=== PATIENT | male | born 1980 | race African-American/Black ===

== ENCOUNTER 2019-01-07 15:50 | Emergency (ER) | payer OTHER ==
[~2019-01-07] VITALS: Ht 182.9 cm; Wt 83.9 kg
[2019-01-07 16:46] VITALS: BP 123/84
== END 2019-01-07 17:12 ==
LOC: ER 16:02
DX: Z02.89 Encounter for other administrative examinations (principal); Y04.0XXA Assault by unarmed brawl or fight, initial encounter; X58.XXXA Exposure to other specified factors, initial encounter; Y93.89 Activity, other specified; Y92.89 Other specified places as the place of occurrence of the external cause; Y99.8 Other external cause status

== ENCOUNTER 2019-03-14 04:44 | Emergency (ER) | payer OTHER ==
[~2019-03-14] VITALS: Ht 190.5 cm; Wt 88.5 kg
--- NOTE | 2019-03-14 04:59 | NUR ---
called to triage, no response from pt. not in waiting room
[2019-03-14 05:13] VITALS: BP 164/104
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
--- NOTE | 2019-03-14 05:43 | NUR ---
Patient discharged to home in stable condition. Written and verbal after care instructions given. Patient verbalizes understanding of instruction.Pt ambulatory with limp but on steady gait
== END 2019-03-14 05:45 | disposition home or self-care (01) ==
LOC: ER 04:46
DX: L03.116 Cellulitis of left lower limb (principal); M25.562 Pain in left knee; Z59.0 Homelessness

== ENCOUNTER 2019-05-16 01:37 | Inpatient (IN) | payer OTHER ==
[~2019-05-16] VITALS: Ht 190.5 cm; Wt 86.7 kg
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
[2019-05-16 02:18] LABS: BASOPHILS # (AUTO) 0.1 /CMM (0.0-0.2); BASOPHILS % (AUTO) 0.8 % (0.0-2.0); EOSINOPHILS % (AUTO) 4.4 % (0.0-6.0); HEMATOCRIT 44 % (39-51); HEMOGLOBIN 15.1 g/dL (13.5-17.5); LYMPHOCYTES # (AUTO) 1.9 /CMM (0.8-4.8); LYMPHOCYTES % (AUTO) 26.6 % (20.0-44.0); MEAN CORPUSCULAR HGB CONC 34 g/dl (31.0-36.0); MEAN CORPUSCULAR VOLUME 90 fL (80-96); MONOCYTES # (AUTO) 0.5 /CMM (0.1-1.30); MONOCYTES % (AUTO) 7.7 % (2.0-12.0); NEUTROPHILS # (AUTO) 4.3 /CMM (1.8-8.9); NEUTROPHILS % (AUTO) 60.5 % (43.0-81.0); PLATELET COUNT (AUTO) 509 /CMM (150-450); RED BLOOD CELL COUNT(AUTO) 4.91 MIL/uL (4.5-6.0); WHITE BLOOD COUNT (AUTO) 7.1 K/uL (4.3-11.0)
[2019-05-16 02:19] LABS: CREATININE 1.2 mg/dL (0.6-1.3); POTASSIUM 4.1 mmol/L (3.5-5.1)
[2019-05-16] MEDS ORDERED: Z GUARD REMEDY 2 OZ OINT TP PRN (03:00)
[2019-05-16] MEDS ORDERED: MAG HYDROX/AL HYDROX/SIMETH 30 ML UDC PO PRN (03:00)
[2019-05-16] MEDS ORDERED: MAGNESIUM HYDROXIDE 30 ML UDC PO PRN (03:00)
[2019-05-16] MEDS ORDERED: ACETAMINOPHEN 325 MG TABLET PO PRN (03:00)
[2019-05-16] MEDS ORDERED: VANCOMYCIN 1 GM in IV D5W 250 ML IV SCH (03:00)
[2019-05-16] MEDS ORDERED: ONDANSETRON HCL/PF 4 MG/2 ML VIAL IVP PRN (03:00)
[2019-05-16] MEDS ORDERED: HYDROCODONE/APAP 5/325MG 1 EACH TABLET PO PRN (03:00)
[2019-05-16] MEDS ORDERED: ZOLPIDEM TARTRATE 5 MG TABLET PO PRN (03:00)
[2019-05-16] MEDS ORDERED: VANCOMYCIN 500 MG VIAL ONE (03:25)
[2019-05-16] MEDS ORDERED: VANCOMYCIN 1 GM VIAL ONE (03:25)
[2019-05-16] MEDS ORDERED: VANCOMYCIN 1.5 GM in IV D5W 500 ML IV ONE (03:30)
[2019-05-16] MEDS ORDERED: KETOROLAC TROMETHAMINE 15 MG/ML VIAL ONE (03:35)
--- NOTE | 2019-05-16 03:40 | NUR ---
PT STARTED C/O OF PAIN ON THE R HUMPHREY WOUND. RATED 9/10. MD MADE AWARE. RECEIVED VERBAL ORDER OF TORADOL 15MG IV X DOSE. NOTED AND CARRIED OUT
--- NOTE | 2019-05-16 03:46 | NUR ---
TORADOL 15MG ORDER DOUBLE. CANCELLED ONE.
[2019-05-16] MEDS ORDERED: KETOROLAC TROMETHAMINE INJ 30 MG/ML VIAL IV ONE ×2 (04:00)
--- NOTE | 2019-05-16 05:15 | NUR ---
REPORT GIVEN TO HEAVENLY HURD FOR ARLETH.
--- NOTE | 2019-05-16 05:25 | NUR ---
PT TRANSPORTED TO UNIT ON [facility] WITH EMT AND RN AT BEDSIDE. PT IS STABLE FOR TRANSPORT W/O NOTING ANY DISTRESS. PT AMBULATED FROM GURNEY TO BED W/O ANY ASSIST
--- NOTE | 2019-05-16 05:30 | NUR ---
MS MEETING MANAGER NOTES RECEIVED REPORT FROM HEAVENLY PRIEST, IN THE ER. PATIENT TRANSFERRED TO UNIT VIA GURNEY. PATIENT A/O X4. ON ROOM AIR. ABLE TO AMBULATE WITHOUT ASSISTANCE. IV PRESENT ON RIGHT FOREARM, SIZE 18, INTACT & PATENT, HEP LOCKED. NO S/S OF ACUTE RESPIRATORY DISTRESS AND NO COMPLAINTS OF PAIN AT THIS TIME. OPEN WOUND PRESENT ON RIGHT HUMPHREY. PICTURES TAKEN AND PLACED IN CHART. PATIENT REFUSED REVIEW OF BELONGINGS INSIDE BACKPACK, NOTED AND SIGNED IN BELONGINGS LIST AND PLACED IN CHART. NO HOME MEDS REPORTED BY PATIENT. MD MADE AWARE OF NEW ADMISSION AND ORDERS PLACED. BED LOCKED, SEMI-KENNEDY'S POSITION, SIDE RAILS X2, CALL LIGHT WITHIN REACH. WILL CONTINUE TO MONITOR.
[2019-05-16] MEDS ORDERED: PIPERACILLIN /TAZOBACTAM 3.375 G in IV D5W 50 ML IV ONE (06:00)
[2019-05-16 06:10] VITALS: BP 155/95
[2019-05-16] MEDS ORDERED: PIPERACILLIN /TAZOBACTAM 3.375 G VIAL IV ONE (06:27)
[2019-05-16] MEDS: IV NS 0.9% 1,000 ML IV PRN (06:40)
--- NOTE | 2019-05-16 07:30 | NUR ---
RN OPENING NOTES RECEIVED PATIENT IN BED RESTING COMFORTABLY IN MODERATE HIGH BACK REST. A/O X3. NO SIGNS OF DISTRESS NOTED AT THIS TIME. IV ACCESS ON RIGHT FA #18, SL. PATENT AND INTACT. SAFETY MEASURES IN PLACE, BED IN LOW LOCKED POSITION WITH SIDE RAILS UP X2. CALL LIGHT WITHIN EASY REACH. WILL CONTINUE TO MONITOR.
[2019-05-16] MEDS ORDERED: FEE PK DOSING 1 MIN EA MC ONE (07:37)
[2019-05-16 07:40] LABS: BASOPHILS # (AUTO) 0.1 /CMM (0.0-0.2); EOSINOPHILS % (AUTO) 4.4 % (0.0-6.0); HEMATOCRIT 43 % (39-51); HEMOGLOBIN 14.8 g/dL (13.5-17.5); LYMPHOCYTES # (AUTO) 1.5 /CMM (0.8-4.8); LYMPHOCYTES % (AUTO) 27.3 % (20.0-44.0); MEAN CORPUSCULAR HGB CONC 35 g/dl (31.0-36.0); MEAN CORPUSCULAR VOLUME 90 fL (80-96); MONOCYTES # (AUTO) 0.5 /CMM (0.1-1.30); MONOCYTES % (AUTO) 8.2 % (2.0-12.0); NEUTROPHILS # (AUTO) 3.3 /CMM (1.8-8.9); NEUTROPHILS % (AUTO) 59.1 % (43.0-81.0); PLATELET COUNT (AUTO) 482 /CMM (150-450); WHITE BLOOD COUNT (AUTO) 5.7 K/uL (4.3-11.0)
--- NOTE | 2019-05-16 07:46 | NUR ---
MS RN CLOSING NOTES PATIENT RESTING IN BED. A/O X3. ON ROOM AIR. IV PRESENT ON RIGHT FA, SIZE 18, INTACT & PATENT, WITH IVPB ZOSYN RUNNING AT 100 CC/HR. WOUND ON RIGHT HUMPHREY COVERED WITH DRESSING. NO S/S OF ACUTE RESPIRATORY DISTRESS AND NO COMPLAINTS OF PAIN AT THIS TIME. BED LOCKED, LOW-KENNEDY'S POSITION, SIDE RAILS X2, CALL LIGHT WITHIN REACH. WILL ENDORSE TO DAY SHIFT NURSE TO FOLLOW PLAN OF CARE.
[2019-05-16 07:57] LABS: CALCIUM, SERUM 8.9 mg/dL (8.5-10.1); CREATININE 1.1 mg/dL (0.6-1.3); MAGNESIUM 2.1 mg/dL (1.8-2.4); PHOSPHORUS 3.6 mg/dL (2.5-4.9); POTASSIUM 4.1 mmol/L (3.5-5.1)
[2019-05-16 08:00] VITALS: BP 155/99
[2019-05-16] MEDS: PIPERACILLIN /TAZOBACTAM 3.375 G in IV D5W 100 ML IV SCH ×2 (09:54→17:12)
[2019-05-16] MEDS: INFLUENZA VACCINE 2019-20 0.5 ML DISP.SYRIN IM ONE ×2 (09:59→10:19)
[2019-05-16] MEDS: VANCOMYCIN 1.25 GM in IV D5W 250 ML IV SCH ×2 (11:16→20:07)
[2019-05-16] MEDS ORDERED: PIPERACILLIN /TAZOBACTAM 3.375 G in IV D5W 50 ML IV SCH (12:00)
[2019-05-16 16:00] VITALS: BP 146/81
--- NOTE | 2019-05-16 18:43 | NUR ---
RN CLOSING NOTES PATIENT IN BED RESTING COMFORTABLY IN MODERATE HIGH BACK REST. A/O X3. NO SIGNS OF DISTRESS NOTED THROUGHOUT THE SHIFT. IV ACCESS ON RIGHT FA #18, SL AND LEFT FA#20 WITH NS @75ML/HR. PATENT AND INTACT. SAFETY MEASURES IN PLACE, BED IN LOW LOCKED POSITION WITH SIDE RAILS UP X2. CALL LIGHT WITHIN EASY REACH. WILL ENDORSE TO RESEARCH GREENHOUSE SUPERVISOR NURSE FOR ARLETH.
--- NOTE | 2019-05-16 19:30 | NUR ---
MS RN OPENING NOTES PATIENT ASLEEP UPON ARRIVAL, ABLE TO WAKE UP THROUGH VERBAL RESPONSES BUT IS STILL VERY LETHARGIC. A/O X 3. ON ROOM AIR. NO S/S OF ACUTE RESPIRATORY DISTRESS AND NO COMPLAINTS OF PAIN AT THIS TIME. IV ON RIGHT FOREARM, SIZE 18, INTACT & PATENT. IV ON LEFT FOREARM, SIZE 20, INTACT & PATENT. WOUND ON RIGHT SHIFT COVERED WITH GAUZE. BED LOCKED, ALARM ON, LOW-KENNEDY'S POSITION, SIDE RAILS X2, CALL LIGHT WITHIN REACH. WILL CONTINUE TO MONITOR.
[2019-05-16 20:00] VITALS: BP 158/87
[2019-05-17] MEDS: PIPERACILLIN /TAZOBACTAM 3.375 G in IV D5W 100 ML IV SCH ×3 (02:11→16:58)
[2019-05-17] MEDS: IV NS 0.9% 1,000 ML IV PRN (02:14)
[2019-05-17] MEDS: VANCOMYCIN 1.25 GM in IV D5W 250 ML IV SCH (04:06)
[2019-05-17 07:10] LABS: EOSINOPHILS % (AUTO) 5.1 % (0.0-6.0); HEMATOCRIT 46 % (39-51); HEMOGLOBIN 15.7 g/dL (13.5-17.5); LYMPHOCYTES # (AUTO) 1.3 /CMM (0.8-4.8); LYMPHOCYTES % (AUTO) 28.7 % (20.0-44.0); MEAN CORPUSCULAR HGB CONC 34 g/dl (31.0-36.0); MEAN CORPUSCULAR VOLUME 90 fL (80-96); MONOCYTES # (AUTO) 0.3 /CMM (0.1-1.30); MONOCYTES % (AUTO) 6.7 % (2.0-12.0); NEUTROPHILS # (AUTO) 2.7 /CMM (1.8-8.9); NEUTROPHILS % (AUTO) 58.5 % (43.0-81.0); PLATELET COUNT (AUTO) 471 /CMM (150-450); RED BLOOD CELL COUNT(AUTO) 5.12 MIL/uL (4.5-6.0); WHITE BLOOD COUNT (AUTO) 4.5 K/uL (4.3-11.0)
--- NOTE | 2019-05-17 07:30 | NUR ---
PT RECEIVED RESTING COMFORTABLY IN BED. NO S/S OR C/O PAIN OR DISTRESS NOTED. SIDE RAILS UP X2, CALL LIGHT LEFT WITHIN REACH. WILL CONTINUE PLAN OF CARE
--- NOTE | 2019-05-17 07:38 | NUR ---
MS RN CLOSING NOTES PATIENT SLEEPING IN BED. A/O X 3. ON ROOM AIR. NO S/S OF ACUTE RESPIRATORY DISTRESS AND NO COMPLAINTS OF PAIN AT THIS TIME. IV ON RIGHT FOREARM, SIZE 18, INTACT & PATENT. IV ON LEFT FOREARM, SIZE 20, INTACT & PATENT. BED LOCKED, ALARM ON, LOW-KENNEDY'S POSITION, SIDE RAILS X2, CALL LIGHT WITHIN REACH. WILL ENDORSE TO DAY SHIFT NURSE TO FOLLOW PLAN OF CARE.
[2019-05-17 07:39] LABS: CALCIUM, SERUM 8.9 mg/dL (8.5-10.1); CREATININE 1.1 mg/dL (0.6-1.3); POTASSIUM 4.1 mmol/L (3.5-5.1)
[2019-05-17 08:00] VITALS: BP 149/105
[2019-05-17] MEDS: VANCOMYCIN 1 GM in IV D5W 250ml IV SCH ×2 (12:58→20:27)
[2019-05-17 16:00] VITALS: BP 160/105
--- NOTE | 2019-05-17 18:22 | NUR ---
CHANGE OF SHIFT REPORT PT RESTING COMFORTABLY IN BED. NO S/S OR C/O PAIN OR DISTRESS NOTED. SIDE RAILS UP X2, CALL LIGHT LEFT WITHIN REACH. PT KEPT CLEAN, DRY, AND COMFORTABLE. NO SIGNIFICANT CHANGE SINCE PREVIOUS SHIFT. WILL GIVE REPORT TO CONCEPCIÓN BURDICK.
--- NOTE | 2019-05-17 19:50 | NUR ---
RN NOTES RECEIVED PATIENT ASLEEP IN BED, AROUSABLE, NO SIGNS OF ACUTE DISTRESS NOTED, SAFETY MEASURES IN PLACE, CALL LIGHT WITHIN EASY REACH, BED IN LOW LOCKED POSITION.ALL NEEDS ATTENDED, WILL MONITOR ACCORDINGLY.
[2019-05-17 20:54] VITALS: BP 144/75
[2019-05-17 20:58] VITALS: BP 144/75
[2019-05-18] MEDS: PIPERACILLIN /TAZOBACTAM 3.375 G in IV D5W 100 ML IV SCH (03:01)
[2019-05-18] MEDS: VANCOMYCIN 1 GM in IV D5W 250ml IV SCH (04:00)
--- NOTE | 2019-05-18 06:51 | NUR ---
RN NOTES ALL NEEDS ATTENDED AND MET ABLE TO REST AND SLEPT AT INTERVALS, SAFETY MEASURES IN PLACE, CALL LIGHT WITHIN EASY REACH. WILL ENDORSE TO AM NURSE FOR CONTINUITY OF CARE.
[2019-05-18 07:29] LABS: BASOPHILS # (AUTO) 0.1 /CMM (0.0-0.2); BASOPHILS % (AUTO) 1.1 % (0.0-2.0); EOSINOPHILS % (AUTO) 4.7 % (0.0-6.0); HEMATOCRIT 46 % (39-51); HEMOGLOBIN 15.8 g/dL (13.5-17.5); LYMPHOCYTES # (AUTO) 1.5 /CMM (0.8-4.8); LYMPHOCYTES % (AUTO) 27.6 % (20.0-44.0); MEAN CORPUSCULAR HGB CONC 34 g/dl (31.0-36.0); MEAN CORPUSCULAR VOLUME 90 fL (80-96); MONOCYTES # (AUTO) 0.4 /CMM (0.1-1.30); MONOCYTES % (AUTO) 7.2 % (2.0-12.0); NEUTROPHILS # (AUTO) 3.3 /CMM (1.8-8.9); NEUTROPHILS % (AUTO) 59.4 % (43.0-81.0); PLATELET COUNT (AUTO) 440 /CMM (150-450); RED BLOOD CELL COUNT(AUTO) 5.12 MIL/uL (4.5-6.0); WHITE BLOOD COUNT (AUTO) 5.6 K/uL (4.3-11.0)
[2019-05-18 07:40] LABS: CREATININE 1.4 mg/dL (0.6-1.3); PHOSPHORUS 4.2 mg/dL (2.5-4.9); POTASSIUM 4.3 mmol/L (3.5-5.1)
--- NOTE | 2019-05-18 07:43 | NUR ---
MS/RN OPENING NOTES RECEIVED PATIENT RESTING COMFORTABLY IN BED. NO S/S OR C/O PAIN OR DISTRESS NOTED. SIDE RAILS UP X2, CALL LIGHT IS WITHIN REACH. PT KEPT CLEAN, DRY, AND COMFORTABLE. NO SIGNIFICANT CHANGE SINCE PREVIOUS SHIFT. WILL CONTINUE TO MONITOR.
[2019-05-18 08:00] VITALS: BP 167/81
[2019-05-18] MEDS ORDERED: CEPH-570 PO (08:39)
--- NOTE | 2019-05-18 09:40 | NUR ---
MS/RN NOTES PATIENT REFUSED TO TAKE WOUND PICTURE BEFORE DISCHARGED. "WANT TO LEAVE NOW" PER PATIENT.
--- NOTE | 2019-05-18 09:45 | NUR ---
MS/RN NOTES EXPLAINED PATIENT WAIVER FORM, PATIENT REFUSED TO SIGN.
--- NOTE | 2019-05-18 10:20 | NUR ---
MS/RN NOTES PATIENT LEFT THE UNIT WITH STABLE CONDITION, DENIES PAIN, ALERT AND ORIENTED, IN ROOM AIR AND SATURATION AT 98%. RESPIRATION REGULAR AND UNLABORED. PATIENT IN NO APPARENT DISTRESS. PATIENT VERBALIZED WANTED TO LEAVE. EXPLAINED THE RISK AND BENEFIT FOR STAYING IN THE STREET. REFUSED ANY HELP. REFUSED TO SIGN THE D/C FORM "CANNOT WAIT" PER PATIENT.
--- NOTE | 2019-05-18 10:25 | NUR ---
WOUND CARE CONSULT: UNABLE TO SEE PT SINCE PT ALREADY LEFT HOSPITAL.
--- NOTE | 2019-05-18 10:26 | NUR ---
Social service consult requested by Dr. Chand for homelessness. RN BONE MARROW TRANSPLANT was unable to see the pt. since pt. left in a hurry and without his prescriptions.
== END 2019-05-18 10:15 | disposition home or self-care (01) | DRG 383 ==
LOC: ER 01:41 → MED 04:40
PROVIDERS: ADMIT Student in an Organized Health Care Education/Training Program; ATTEND Student in an Organized Health Care Education/Training Program
DX: L03.116 Cellulitis of left lower limb (principal); D47.3 Essential (hemorrhagic) thrombocythemia; Z59.0 Homelessness; V29.9XXD Motorcycle rider (driver) (passenger) injured in unspecified traffic accident, subsequent encounter
CPT/HCPCS: 36415; 73590-TC; 80048-TC; 80061-TC; 80202-TC; 83735-TC; 84100-TC; 85025-TC; 87040-TC; 87070-TC; 87081-TC; 87186-TC; 97116-TC; 97530-TC; A6403; G0378; J1885; J2543; J3370; J7030; J7040; J7050; J7060; Q2036

== ENCOUNTER 2019-07-19 08:41 | Inpatient (IN) | payer OTHER ==
[~2019-07-19] VITALS: Ht 190.5 cm; Wt 86.2 kg
[~2019-07-19 08:41] MED LIST: CEPH-570 PO
[2019-07-19] MEDS ORDERED: PIPERACILLIN /TAZOBACTAM 3.375 G in IV D5W 50 ML IV ONE (09:30)
[2019-07-19] MEDS ORDERED: MORPHINE SULFATE INJ 2 MG/ML DISP.SYRIN IV ONE (09:30)
[2019-07-19] MEDS ORDERED: ONDANSETRON HCL/PF 4 MG/2 ML VIAL IVP ONE (09:30)
[2019-07-19] MEDS ORDERED: IV NS 0.9% 1,000 ML BAG IV ONE (09:30)
[2019-07-19 09:54] LABS: BASOPHILS % (AUTO) 0.5 % (0.0-2.0); EOSINOPHILS % (AUTO) 1.8 % (0.0-6.0); HEMATOCRIT 40 % (39-51); HEMOGLOBIN 13.4 g/dL (13.5-17.5); LYMPHOCYTES % (AUTO) 10.9 % (20.0-44.0); MEAN CORPUSCULAR HGB CONC 34 g/dl (31.0-36.0); MEAN CORPUSCULAR VOLUME 89 fL (80-96); MONOCYTES # (AUTO) 0.9 /CMM (0.1-1.30); MONOCYTES % (AUTO) 9.3 % (2.0-12.0); NEUTROPHILS # (AUTO) 7.3 /CMM (1.8-8.9); NEUTROPHILS % (AUTO) 77.5 % (43.0-81.0); PLATELET COUNT (AUTO) 371 /CMM (150-450); RED BLOOD CELL COUNT(AUTO) 4.43 MIL/uL (4.5-6.0); WHITE BLOOD COUNT (AUTO) 9.4 K/uL (4.3-11.0)
[2019-07-19] MEDS ORDERED: MORPHINE SULFATE INJ 4 MG/ML DISP.SYRIN ONE (10:00)
[2019-07-19] MEDS ORDERED: ONDANSETRON HCL/PF 4 MG/2 ML VIAL ONE (10:00)
[2019-07-19 10:05] LABS: CALCIUM, SERUM 9.1 mg/dL (8.5-10.1); CREATININE 1.1 mg/dL (0.6-1.3); POTASSIUM 4.1 mmol/L (3.5-5.1)
[2019-07-19] MEDS ORDERED: PIPERACILLIN /TAZOBACTAM 3.375 G VIAL IV ONE (10:13)
--- NOTE | 2019-07-19 10:27 | NUR ---
Patient awake alert friend @ bedside ,noted edam to RT leg an foot /ankle ,he has Rt wound lesion blood draw done awaiting for result ,noted RT AC IV infusing well
--- NOTE | 2019-07-19 10:34 | NUR ---
PANEL ON-CALL PAGED
--- NOTE | 2019-07-19 12:14 | NUR ---
MS/RN NOTE THE PATIENT IS RECEIVED ON A GURNEY. ASSISTED THE PATIENT TO BED. PATIENT IS ALERT AND ORIENTED X4. IN ROOM AIR AND DENIES SOB. RESPIRATION REGULAR AND UNLABORED. COMPLAINS OF RIGHT LOWER LEG PAIN. DR BANDA IS AWARE. WILL ADMINISTER PAIN MEDICATION SOON THE MD PLACES AN ORDER. LAC G 20 PATENT AND SALINE LOCKED. PATIENT IS GIVEN ORIENTATION TO THE ROOM AND UNIT AND HE VERBALIZED UNDERSTANDING. BED LOW AND LOCKED. SIDE RAILS UP X3. CALL LIGHT WITHIN REACH. WILL CONTINUE TO MONITOR.
[2019-07-19] MEDS ORDERED: Z GUARD REMEDY 2 OZ OINT TP PRN (12:30)
[2019-07-19] MEDS ORDERED: ONDANSETRON HCL/PF 4 MG/2 ML VIAL IVP PRN (12:30)
[2019-07-19] MEDS ORDERED: MAG HYDROX/AL HYDROX/SIMETH 30 ML UDC PO PRN (12:30)
[2019-07-19] MEDS ORDERED: ZOLPIDEM TARTRATE 5 MG TABLET PO PRN (12:30)
[2019-07-19] MEDS ORDERED: MAGNESIUM HYDROXIDE 30 ML UDC PO PRN (12:30)
[2019-07-19] MEDS ORDERED: CLINDAMYCIN IV RTU IN D5W 900 MG/50 ML PIGGYBACK IV SCH (13:00)
[2019-07-19] MEDS: CLINDAMYCIN 900 MG in IV D5W 50 ML IV SCH ×2 (13:36→20:04)
[2019-07-19] MEDS: HYDROCODONE/APAP 5/325MG 1 EACH TABLET PO PRN ×2 (14:45→18:57)
[2019-07-19 17:24] VITALS: BP 155/94
[2019-07-19] MEDS: ACETAMINOPHEN 325 MG TABLET PO PRN ×2 (17:24→23:27)
--- NOTE | 2019-07-19 17:24 | NUR ---
MS/RN NOTE THE PATIENT IS NOTED TO HAVE TEMP OF 101.5. TYLENOL 650 MG PO IS GIVEN. WILL CONTINUE TO MONITOR.
[2019-07-19 18:00] VITALS: BP 151/97
--- NOTE | 2019-07-19 18:00 | NUR ---
MS/RN NOTE NOTED ELEVATION IN TEMP TO 101.7 DESPITE ADMINISTRATION OF TYLENOL 650MG PO AT 1724. COOLING MEASURES PROVIDED TOO. WILL MONITOR.
[2019-07-19 18:30] VITALS: BP 152/95
--- NOTE | 2019-07-19 18:58 | NUR ---
MS/RN NOTE THE PATIENT IS ALERT AND ORIENTED X4. IN ROOM AIR AND SATURATION IS AT 99%. DENIES SOB. RESPIRATION REGULAR AND UNLABORED. PATIENT COMPLAINS OF RIGHT LOWER LEG PAIN 01/13. NORCO 5/325 1 TAB PO GIVEN. WILL ENDORSE TO REPAIRER SASH AND DOOR TO MONITOR THE EFFECTIVENESS OF PAIN MEDICATION. THE MOST RECENT TEMP IS 99.2. COOLING MEASURES STILL PROVIDED AND WILL ENDORSE TO REPAIRER SASH AND DOOR TO CONTINUE MONITOR TEMP CLOSELY. THE PATIENT REMOVED LAC G 20 IV AND REFUSES IV INSERTION AT THIS TIME. HE AGREED IV INSERTION LATER TONIGHT. DR BANDA IS AWARE. RIGHT LOWER LEG IS ELEVATED ON A PILLOW. BED LOW AND LOCKED. SIDE RAILS UP X3. CALL LIGHT WITHIN REACH. WILL ENDORSE TO REPAIRER SASH AND DOOR.
[2019-07-19 19:00] VITALS: BP 149/94
[2019-07-19 20:00] VITALS: BP_SYST 144; BP_SYST 149; BP_DIAS 69
--- NOTE | 2019-07-19 20:42 | NUR ---
RN NOTES RECEIVED PATIENT IN BED, ALERT AND ORIENTED X4, ROOM AIR, CALM, MUMBLES TO SELF, LAT TEMP 98.1F, HAD EPISODE OF FEVER, RIGHT LEG CELLULITIS, COVERED WITH ABDOMINAL PAD,PT REFUSED KERLIX AROUND LEG, REINSERTED IV LINE TO RIGHT WRIST, CLEOCIN IV GIVEN, SIGNIFICANT OTHER AT THE BEDSIDE. PT HAS HX OF METHAMPHETAMINE USE, DENIES IV DRUG USE.
--- NOTE | 2019-07-19 21:45 | NUR ---
RN NOTES PERSISTENT FEVER, LAST TEMP 103.5F, COOLING MEASURES MAINTAINED, AWAITING BLOOD CULTURE RESULTS, ON CLEOCIN IV, TYLENOL WAS GIVEN, NOTIFIED DR. RAI, NO NEW ORDER.
[2019-07-20] MEDS: CLINDAMYCIN 900 MG in IV D5W 50 ML IV SCH ×2 (04:30→12:39)
--- NOTE | 2019-07-20 06:32 | NUR ---
RN NOTES PM SHIFT ALERT AND ORIENTED X4, STABLE ON ROOM AIR, COMPLAINING OF PAIN TO RIGHT LEG DUE TO CELLULITIS, TEMPERATURE ELEVATED DURING SHIFT, COOLING MEASURES, TYLENOL GIVEN, LAST TEMP AT 0630 98.1F, ON CLEOCIN IVPB, PENDING BLOOD CULTURE RESULTS, WOUND CARE CONSULT
[2019-07-20 07:47] LABS: BASOPHILS % (AUTO) 0.3 % (0.0-2.0); EOSINOPHILS % (AUTO) 0.5 % (0.0-6.0); HEMATOCRIT 39 % (39-51); LYMPHOCYTES # (AUTO) 1.4 /CMM (0.8-4.8); LYMPHOCYTES % (AUTO) 8.9 % (20.0-44.0); MEAN CORPUSCULAR HGB CONC 34 g/dl (31.0-36.0); MEAN CORPUSCULAR VOLUME 90 fL (80-96); MONOCYTES # (AUTO) 1.9 /CMM (0.1-1.30); MONOCYTES % (AUTO) 12.3 % (2.0-12.0); NEUTROPHILS # (AUTO) 12.2 /CMM (1.8-8.9); PLATELET COUNT (AUTO) 360 /CMM (150-450); RED BLOOD CELL COUNT(AUTO) 4.31 MIL/uL (4.5-6.0); WHITE BLOOD COUNT (AUTO) 15.7 K/uL (4.3-11.0)
--- NOTE | 2019-07-20 07:49 | NUR ---
MS RN OPENING NOTES RECEIVED PATIENT IN BED, ASLEEP. PATIENT BREATHING ON ROOM AIR WITH NO SIGN OF ACUTE DISTRESS OR SOB PRESENT. NO SIGNS OF PAIN NOTED SUCH MOANING, FACIAL GRIMACING OR GUARDING. R WRIST HL # 20 PRESENT AND INTACT, FLUSHING WELL. SAFETY PRECAUTIONS IN PLACE; BED IN LOW POSITION AND LOCKED, RAILS UP X 2, CALL LIGHT WITHIN REACH. WILL CONTINUE TO MONITOR PATIENT.
[2019-07-20 08:00] VITALS: BP 125/73
[2019-07-20 08:08] LABS: CALCIUM, SERUM 8.5 mg/dL (8.5-10.1); MAGNESIUM 1.9 mg/dL (1.8-2.4); PHOSPHORUS 2.9 mg/dL (2.5-4.9); POTASSIUM 4.1 mmol/L (3.5-5.1)
--- NOTE | 2019-07-20 10:48 | NUR ---
WOUND CARE CONSULT: LIMITED ASSESSMENT TODAY DUE TO PT NOT FULLY COOPERATIVE. PT MOANING AND LYING ON HIS SIDE. RECOMMEND DPM CONSULT FOR LOWER LEG WOUNDS. PURULENT DRAINAGE AND ODOR NOTED WELL VERY RED SWOLLEN RT LOWER LEG, PRESENT ON ADMISSION. DR TITUS NOTIFIED OF CONSULT REQUEST. WILL SEE PRN. ALFARO IN AGREEMENT WITH PLAN OF CARE. CURRENT MINERVA SCORE IS 17. Addendum: 07/20/19 at 1050 by TONYA MEHTA WNDNU Amended: Links added.
[2019-07-20] MEDS: ACETAMINOPHEN 325 MG TABLET PO PRN ×2 (11:50→20:35)
--- NOTE | 2019-07-20 11:54 | NUR ---
MS RN NOTES PATIENT SHIVERING AND COLD. CHECKED HIS FEVER. FEVER OF 101.2. PRN TYLENOL FOR FEVER ADMINISTERED. WILL REASSESS SOON.
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
[2019-07-20 16:00] VITALS: BP 141/74
[2019-07-20] MEDS ORDERED: IV NS 0.9% 1,000 ML BAG IV PRN (16:30)
[2019-07-20] MEDS ORDERED: FEE PK DOSING 1 MIN EA MC ONE (16:41)
[2019-07-20] MEDS ORDERED: PIPERACILLIN /TAZOBACTAM 3.375 G in IV D5W 100 ML IV SCH (17:00)
[2019-07-20] MEDS ORDERED: PIPERACILLIN /TAZOBACTAM 3.375 G in IV D5W 50 ML IV SCH (18:00)
[2019-07-20] MEDS ORDERED: VANCOMYCIN 1.25 GM in IV D5W 250 ML IV ONE (18:00)
[2019-07-20] MEDS: PIPERACILLIN /TAZOBACTAM 3.375 G in IV D5W 50 ML IV SCH ×2 (18:04→23:40)
--- NOTE | 2019-07-20 19:21 | NUR ---
MS RN CLOSING NOTES PATIENT IN BED, IN AND OUT OF SLEEP. PATIENT BREATHING ON ROOM AIR WITH NO SIGN OF ACUTE DISTRESS OR SOB PRESENT. MILD PAIN PER PATIENT BUT NO MEDICATION REQUESTED. DURING THE DAY TEMP WENT UP AND PATIENT WAS GIVEN PRN TYLENOL. R WRIST HL # 20 PRESENT AND INTACT INFUSING MEDICATION AT THIS TIME. WOUND CARE DONE TODAY. SAFETY PRECAUTIONS IN PLACE; BED IN LOW POSITION AND LOCKED, RAILS UP X 2, CALL LIGHT WITHIN REACH. WILL ENDORSE TO FOREIGN LANGUAGE INTERPRETER NURSE.
--- NOTE | 2019-07-20 19:28 | NUR ---
MS RN NOTES PATIENT IN BED RESTING, LAYING COMFORTABLY. PATIENT AWAKEN BY NAME AND LIGHT TOUCH. PATIENT ON ROOM AIR, WITH NO SIGNS OF RESPIRATORY DISTRESS, NO SIGNS OF SOB, WITH EVEN NON-LABORED BREATHING. PATIENT IV ACCESS INTACT AND PATENT. PROVIDED COMFORT MEASURES TO PATIENT. SAFETY PRECAUTIONS IN PLACE WITH THE BED IN THE LOWEST POSITION, BILATERAL SIDE RAILS UP, BED LOCKED, BED ALARM ON, AND CALL LIGHT WITHIN EASY REACH OF THE PATIENT. WILL CONTINUE TO MONITOR PATIENT.
[2019-07-20 20:32] VITALS: BP 137/83
--- NOTE | 2019-07-20 20:38 | NUR ---
MS RN NOTES PATIENT TEMPERATURE 101.3 F. PROVIDED ICE PACK TO THE PATIENT AND MADE THE ROOM COOLER. ADMINISTERED ACETAMINOPHEN PO. WILL CONTINUE TO MONITOR PATIENT.
[2019-07-20 21:55] VITALS: BP 137/83
[2019-07-21] MEDS: VANCOMYCIN 1 GM in IV D5W 250 ML IV SCH ×3 (01:16→19:47)
[2019-07-21] MEDS: PIPERACILLIN /TAZOBACTAM 3.375 G in IV D5W 50 ML IV SCH ×4 (05:02→23:17)
--- NOTE | 2019-07-21 06:51 | NUR ---
MS RN NOTES PATIENT IN BED SLEEPING, ACCOMPANIED BY SIGNIFICANT OTHER AT BEDSIDE. ALERT AND ORIENTED X4. PATIENT ON ROOM AIR DENIES SOB, NO RESPIRATORY DISTRESS PRESENT AND WITH EVEN NON-LABORED BREATHING. IV ACCESS IN PLACE, INTACT, AND PATENT, RUNNING NS AT 100ml/hr. PATIENT SKIN KEPT CLEAN AND DRY. DRESSING ON RIGHT LOWER EXTREMITY KEPT CLEAN AND INTACT. PATIENT INITIAL TEMPERATURE 101.3 F, COOLING MEASURES APPLIED, PRN TYLENOL MEDICATION ADMINISTERED, AND CURRENT TEMPERATURE 98.5F. SAFETY PRECAUTIONS IN PLACE WITH BED IN THE LOWEST POSITION, BILATERAL SIDE RAILS UP, BED LOCKED, AND CALL LIGHT WITHIN EASY REACH OF THE PATIENT. WILL ENDORSE ARLETH TO UPCOMING DAYSHIFT NURSE.
[2019-07-21 08:00] VITALS: BP 128/76
--- NOTE | 2019-07-21 08:00 | NUR ---
m/s disk operator: initial assessment received pt in bed sounds asleep with girlfriend at bedside. no s/s of distress noted. no distress noted. will continue to monitor.
[2019-07-21] MEDS: ACETAMINOPHEN 325 MG TABLET PO PRN ×2 (09:13→20:28)
[2019-07-21 09:22] LABS: CALCIUM, SERUM 8.6 mg/dL (8.5-10.1); CREATININE 1.3 mg/dL (0.6-1.3); POTASSIUM 4.4 mmol/L (3.5-5.1)
[2019-07-21 09:54] LABS: BASOPHILS % (AUTO) 0.2 % (0.0-2.0); EOSINOPHILS % (AUTO) 0.6 % (0.0-6.0); HEMATOCRIT 39 % (39-51); HEMOGLOBIN 12.7 g/dL (13.5-17.5); LYMPHOCYTES # (AUTO) 1.5 /CMM (0.8-4.8); LYMPHOCYTES % (AUTO) 7.4 % (20.0-44.0); MEAN CORPUSCULAR HGB CONC 33 g/dl (31.0-36.0); MEAN CORPUSCULAR VOLUME 90 fL (80-96); MONOCYTES # (AUTO) 1.6 /CMM (0.1-1.30); NEUTROPHILS # (AUTO) 16.5 /CMM (1.8-8.9); NEUTROPHILS % (AUTO) 83.8 % (43.0-81.0); PLATELET COUNT (AUTO) 471 /CMM (150-450); WHITE BLOOD COUNT (AUTO) 19.7 K/uL (4.3-11.0)
--- NOTE | 2019-07-21 11:00 | NUR ---
m/s environmental health sanitarian: notes venous duplex to right lower ext done which is negative.
--- NOTE | 2019-07-21 12:00 | NUR ---
m/s talcer: dpm f/u seen and examined by dr. arreola and tx done to right lower leg wound. per md, the right medial malleolus and left lower leg is just scab. pt tolerated wound tx. will continue to monitor.
[2019-07-21] MEDS: SILVER SULFADIAZINE 50 GM JAR TP SCH (12:11)
--- NOTE | 2019-07-21 14:00 | NUR ---
m/s fur grader: notes mri checklist done and signed by pt and verbalized understanding.
--- NOTE | 2019-07-21 14:15 | NUR ---
m/s electrical accessories ii assembler: notes pt taken to mri via w/c at this time.
--- NOTE | 2019-07-21 15:10 | NUR ---
m/s pipeline technician: notes pt returned from mri, but unable to complete test due to coil problem per tech. will do the mri tomorrow as stated. mri checklist consent with tech.
[2019-07-21 16:00] VITALS: BP 123/73
--- NOTE | 2019-07-21 17:30 | NUR ---
m/s billing collections specialist: notes vanco trough drawn at this time.
--- NOTE | 2019-07-21 19:00 | NUR ---
m/s marine diver: notes vanco trough still pending. endorse to noc nurse and report given for continuity of care. pharmacist called and informed not to give the vancomycin until trough is resulted.
--- NOTE | 2019-07-21 19:22 | NUR ---
MS RN NOTES PATIENT RECEIVED IN BED SLEEPING, EASILY AWAKEN BY NAME, ALERT AND ORIENTED X4. ON ROOM AIR WITH NO SIGNS OF RESPIRATORY DISTRESS PRESENT, WITH EVEN NON-LABORED BREATHING. PATIENT IV ACCESS INTACT AND PATENT. AWAITING FOR VANCOMYCIN TROUGH REPORTED BY DAYSHIFT NURSE. PATIENT COMPLAINS OF NO PAIN AND DISCOMFORT AT THIS TIME. PROVIDED COMFORT MEASURES TO PATIENT. SAFETY PRECAUTIONS IMPLEMENTED WITH BED IN THE LOWEST POSITION, BILATERAL SIDE RAILS UP, BED LOCKED, AND CALL LIGHT WITHIN EASY REACH OF PATIENT. WILL CONTINUE TO MONITOR PATIENT.
--- NOTE | 2019-07-21 19:50 | NUR ---
MS RN NOTES VANCOMYCIN TROUGH REPORTED FROM LAB RESULT OF 11. VANCOMYCIN ADMINISTERED AT 1947. WILL CONTINUE TO MONITOR PATIENT.
[2019-07-21 20:00] VITALS: BP 160/80
--- NOTE | 2019-07-21 20:31 | NUR ---
MS RN NOTES PATIENT'S TEMPERATURE IS 100.4, REFUSED COOLING MEASURES. ADMINISTERED PRN ACETAMINOPHEN 650mg at 2027, WILL CONTINUE TO MONITOR AND REASSESS PATIENT'S TEMPERATURE.
[2019-07-22] VITALS: BP 112/73
[2019-07-22] MEDS: VANCOMYCIN 1 GM in IV D5W 250 ML IV SCH ×3 (01:18→19:15)
[2019-07-22] MEDS: PIPERACILLIN /TAZOBACTAM 3.375 G in IV D5W 50 ML IV SCH ×4 (05:08→23:54)
--- NOTE | 2019-07-22 07:25 | NUR ---
MS RN NOTES PATIENT IN BED SLEEPING, EASILY AWAKEN BY NAME AND LIGHT TOUCH. ALERT AND ORIENTED X 4. PATIENT ON ROOM AIR WITH EVEN NON-LABORED BREATHING, NO COMPLAINS OF SOB. PATIENT IV ACCESS INTACT AND PATENT. PATIENT INITIAL TEMPERATURE WAS 100.4, CURRENT TEMPERATURE 98.9F. PROVIDED COMFORT MEASURES AND MET ALL OF PATIENT'S NEEDS. SAFETY PRECAUTIONS IMPLEMENTED WITH BED IN THE LOWEST POSITION, BILATERAL SIDE RAILS UP, BED ALARM ON, BED LOCKED AND CALL LIGHT WITHIN EASY REACH OF THE PATIENT. WILL ENDORSE PLAN OF CARE TO UPCOMING DAYSHIFT NURSE.
[2019-07-22 08:00] VITALS: BP 115/62
[2019-07-22] MEDS ORDERED: IV NS 0.9% 1,000 ML IV PRN (09:30)
[2019-07-22] MEDS: SILVER SULFADIAZINE 50 GM JAR TP SCH (10:45)
--- NOTE | 2019-07-22 11:50 | NUR ---
VERY ANXIOUS AT THIS TIME AND WANTS TO LEAVE.RN ADVISED AGAINST THIS.INFORMED OF NEED FOR IV ANTIBIOTICS.PT. GRADUALLY BECAME AGREEABLE.
[2019-07-22 14:42] LABS: BASOPHILS % (AUTO) 0.3 % (0.0-2.0); EOSINOPHILS % (AUTO) 1.6 % (0.0-6.0); HEMATOCRIT 40 % (39-51); HEMOGLOBIN 13.5 g/dL (13.5-17.5); LYMPHOCYTES # (AUTO) 1.2 /CMM (0.8-4.8); LYMPHOCYTES % (AUTO) 6.7 % (20.0-44.0); MEAN CORPUSCULAR HGB CONC 34 g/dl (31.0-36.0); MEAN CORPUSCULAR VOLUME 90 fL (80-96); MONOCYTES # (AUTO) 1.1 /CMM (0.1-1.30); MONOCYTES % (AUTO) 6.3 % (2.0-12.0); NEUTROPHILS % (AUTO) 85.1 % (43.0-81.0); PLATELET COUNT (AUTO) 626 /CMM (150-450); RED BLOOD CELL COUNT(AUTO) 4.45 MIL/uL (4.5-6.0); WHITE BLOOD COUNT (AUTO) 17.6 K/uL (4.3-11.0)
[2019-07-22 14:59] LABS: CREATININE 1.2 mg/dL (0.6-1.3); MAGNESIUM 2.5 mg/dL (1.8-2.4); PHOSPHORUS 3.8 mg/dL (2.5-4.9); POTASSIUM 4.2 mmol/L (3.5-5.1)
[2019-07-22 16:00] VITALS: BP 118/70
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
--- NOTE | 2019-07-22 19:35 | NUR ---
MS RN OPENING NOTS PATIENT RECEIVED RESTING IN BED A/O X 4. STABLE ON RA WITH BREATHING EVEN AND UNLABORED, NO SOB NOTED. NO SIGNS OF ACUTE DISTRESS. NO COMPLAINTS OF PAIN OR DISCOMFORT. IV LOCATED ON RFA #22 RUNNING NS @ 100 ML/HR SAFETY PRECAUTIONS IN PLACE WITH BED IN LOWEST POSITION, CALL LIGHT WITHIN REACH, BED LOCKED, AND SIDE RAILS UP. WILL CONTINUE TO MONITOR THROUGHOUT THE NIGHT.
[2019-07-22 20:00] VITALS: BP 140/89
[2019-07-23] MEDS: VANCOMYCIN 1 GM in IV D5W 250 ML IV SCH ×2 (01:31→10:13)
[2019-07-23] MEDS: PIPERACILLIN /TAZOBACTAM 3.375 G in IV D5W 50 ML IV SCH ×2 (05:13→14:24)
[2019-07-23 06:29] LABS: BASOPHILS # (AUTO) 0.1 /CMM (0.0-0.2); BASOPHILS % (AUTO) 0.5 % (0.0-2.0); EOSINOPHILS % (AUTO) 2.1 % (0.0-6.0); HEMATOCRIT 37 % (39-51); HEMOGLOBIN 12.5 g/dL (13.5-17.5); LYMPHOCYTES # (AUTO) 1.7 /CMM (0.8-4.8); LYMPHOCYTES % (AUTO) 11.7 % (20.0-44.0); MEAN CORPUSCULAR HGB CONC 34 g/dl (31.0-36.0); MEAN CORPUSCULAR VOLUME 89 fL (80-96); MONOCYTES # (AUTO) 1.1 /CMM (0.1-1.30); MONOCYTES % (AUTO) 7.3 % (2.0-12.0); NEUTROPHILS # (AUTO) 11.5 /CMM (1.8-8.9); NEUTROPHILS % (AUTO) 78.4 % (43.0-81.0); PLATELET COUNT (AUTO) 654 /CMM (150-450); RED BLOOD CELL COUNT(AUTO) 4.18 MIL/uL (4.5-6.0); WHITE BLOOD COUNT (AUTO) 14.7 K/uL (4.3-11.0)
--- NOTE | 2019-07-23 06:30 | NUR ---
MS RN CLOSING NOTES PATIENT RESTING IN BED A/O X 4. STABLE ON RA WITH BREATHING EVEN AND UNLABORED, NO SOB NOTED. NO SIGNS OF ACUTE DISTRESS. NO COMPLAINTS OF PAIN OR DISCOMFORT. IV LOCATED ON RFA #22 RUNNING NS @ 100 ML/HR SAFETY PRECAUTIONS IN PLACE WITH BED IN LOWEST POSITION, CALL LIGHT WITHIN REACH, BED LOCKED, AND SIDE RAILS UP. ALL NEEDS ATTENDED TO. WILL ENDORSE TO ONCOMING SHIFT ABOUT ARLETH.
[2019-07-23 06:55] LABS: CALCIUM, SERUM 8.9 mg/dL (8.5-10.1); CREATININE 1.1 mg/dL (0.6-1.3); MAGNESIUM 2.3 mg/dL (1.8-2.4); PHOSPHORUS 4.1 mg/dL (2.5-4.9); POTASSIUM 4.1 mmol/L (3.5-5.1)
[2019-07-23 08:00] VITALS: BP 123/75
[2019-07-23] MEDS: SILVER SULFADIAZINE 50 GM JAR TP SCH (11:19)
[2019-07-23] MEDS ORDERED: CLIN300C11 PO (16:00)
[2019-07-23] MEDS ORDERED: GADOTERIDOL 279.3 MG/ML VIAL IV ONE (16:45)
--- NOTE | 2019-07-23 17:03 | NUR ---
MS/RN NOTE THE PATIENT IS ALERT AND ORIENTED X4. IN ROOM AIR AND SATURATION IS AT 98%. DENIES SOB. RESPIRATION REGULAR AND UNLABORED. DENIES PAIN. THE PATIENT IN NO APPARENT DISTRESS. DISCHARGE EDUCATION PROVIDED AND THE PATIENT VERBALIZED UNDERSTANDING. THE PATIENT IS REMINDED TO CLAY PLANT TREATER PRESCRIPTION FROM HIS PREFERRED PHARMACY AND THE PATIENT STATED THAT HE WILL GO TO PHARMACY FIRST BEFORE GOING TO HIS FRIEND`S HOUSE. RFA G 22 IV CATHETER REMOVED AND NO BLEEDING NOTED. THE PATIENT LEFT THE HOSPITAL IN STABLE CONDITION.
== END 2019-07-23 17:07 | disposition home or self-care (01) | DRG 710 ==
LOC: ER 08:43 → MED 11:37
PROVIDERS: ADMIT Family Medicine; ATTEND Student in an Organized Health Care Education/Training Program
PROC: 0LBN0ZZ Excision of Right Lower Leg Tendon, Open Approach (ICD-10-PCS; principal; 2019-07-20)
DX: A41.9 Sepsis, unspecified organism (principal); E87.1 Hypo-osmolality and hyponatremia; L03.115 Cellulitis of right lower limb; R73.9 Hyperglycemia, unspecified; Z59.0 Homelessness; F17.210 Nicotine dependence, cigarettes, uncomplicated; Z71.6 Tobacco abuse counseling; S80.821A Blister (nonthermal), right lower leg, initial encounter; X58.XXXA Exposure to other specified factors, initial encounter; Y93.9 Activity, unspecified; Y92.89 Other specified places as the place of occurrence of the external cause; M79.661 Pain in right lower leg; E86.1 Hypovolemia; I87.2 Venous insufficiency (chronic) (peripheral)
CPT/HCPCS: 36415; 71045-TC; 73590-TC; 73720-TC; 80048-TC; 80061-TC; 80202-TC; 80305; 83605-TC; 83735-TC; 84100-TC; 85025-TC; 85730-TC; 87040-TC; 87081-TC; 87086-TC; 93971-TC; A6253; A6403; A9579; G0378; J2270; J2405; J2543; J3370; J3490; J7030; J7050; J7060

== ENCOUNTER 2020-11-16 20:05 | Emergency (ER) | payer OTHER ==
[~2020-11-16] VITALS: Ht 190.5 cm; Wt 83.9 kg
[~2020-11-16 20:05] MED LIST changes: -CEPH-570 PO; +CLIN300C12 PO
--- NOTE | 2020-11-16 20:30 | NUR ---
PATIENT C/O RASH IN SCROTUM REGION FOR 2x WEEKS. PATIENT IS A/O X 4, RR EVEN AND UNLABORED, NO SOB NOTED. PATIENT CONNECTED TO MONITOR.
[2020-11-16] MEDS ORDERED: PENICILLIN G BENZATHINE 2.4 MMU/4 ML ML IM ONE ×2 (21:13→21:30)
[2020-11-16 21:39] VITALS: BP 124/64
--- NOTE | 2020-11-16 21:45 | NUR ---
Patient discharged to home in stable condition. Written and verbal after care instructions given. Patient verbalizes understanding of instruction.
== END 2020-11-16 21:45 | disposition home or self-care (01) ==
LOC: ER 20:18
DX: A53.9 Syphilis, unspecified (principal); K62.6 Ulcer of anus and rectum; F17.200 Nicotine dependence, unspecified, uncomplicated; Z59.0 Homelessness
CPT/HCPCS: 96372; 99283; J0558